=== PATIENT | female | born 1990 ===

== ENCOUNTER 2017-02-07 10:03 | Inpatient (IN) | payer SELFPAY ==
[~2017-02-07] VITALS: Ht 154.9 cm; Wt 61.7 kg
[2017-02-07 10:09] VITALS: BP 118/69
[2017-02-07 10:38] VITALS: BP 115/69
[2017-02-07 10:38] LABS: BASO % 0.7 % (0.0-1.0); EOS % 0.4 % (1.0-4.0); HEMOGLOBIN 13.4 g/dl (12.0-16.0); LYMPH # 1.8 10*3/uL (1.3-4.4); LYMPH % 40.1 % (27.0-41.0); MEAN CORPUSCULAR HGB 30.4 pg (27.0-31.0); MEAN CORPUSCULAR HGB CONC 32.7 g/dl (33.0-37.0); MONO # 0.4 10*3/uL (0.1-1.0); MONO % 9.3 % (3.0-9.0); NEUT # 2.2 10*3/uL (2.3-7.9); NEUT % 49.3 % (47.0-73.0); PLATELET COUNT AUTOMATED 139 10*3/uL (130-400); RED BLOOD COUNT 4.41 10*6/uL (4.10-5.10); RED CELL DISTRI WIDTH 12.3 % (0-14.5); WHITE BLOOD COUNT 4.5 10*3/uL (4.8-10.8)
[2017-02-07 10:55] LABS: ALBUMIN 3.9 gm/dl (3.1-4.5); ALKALINE PHOSPHATASE 63 U/L (45-117); BILIRUBIN, TOTAL 0.4 mg/dl (0.2-1.0); BUN 10 mg/dl (7-24); CARBON DIOXIDE 27 mmol/L (21-32); CHLORIDE 106 mmol/L (98-107); EST GLOM FILT AFRICAN AMERICAN > 60 ml/min; GLUCOSE 78 mg/dL (65-99); POTASSIUM 3.6 mmol/L (3.5-5.1); SGOT/AST 23 IU/L (3-35); SGPT/ALT 24 U/L (12-78); SODIUM 140 mmol/L (136-145); TOTAL PROTEIN 7.9 gm/dL (6.4-8.2); TROPONIN I < 0.015 ng/ml (<0.045)
[2017-02-07 12:23] LABS: BILIRUBIN NEGATIVE (NEGATIVE); BLOOD TRACE-INTACT (NEGATIVE); CLARITY SL CLOUDY (CLEAR); COLOR YELLOW (YELLOW); GLUCOSE NEGATIVE (NEGATIVE); KETONE NEGATIVE (NEGATIVE); LEUKO ESTERASE 2+ (NEGATIVE); NITRITE NEGATIVE (NEGATIVE); PROTEIN NEGATIVE (NEGATIVE); SPECIFIC GRAVITY <= 1.005 (1.005-1.030); UROBILINOGEN 0.2 E.U./dl (0.2-1.0)
[2017-02-07 12:38] LABS: BACTERIA 3+; EPITHELIAL CELLS 20-30; URINE REFLEX COMMENT YES (NO); WBC 21-30 wbc/hpf (0-5)
[2017-02-07 13:38] VITALS: BP 101/64
[2017-02-07 16:00] VITALS: BP 90/50
[2017-02-07 20:00] VITALS: BP 89/52; BP 90/50
[2017-02-08] VITALS: BP 92/48
[2017-02-08 06:56] LABS: BASO % 0.2 % (0.0-1.0); EOS % 0.7 % (1.0-4.0); HEMATOCRIT 36.9 % (37.0-47.0); LYMPH # 1.5 10*3/uL (1.3-4.4); LYMPH % 35.7 % (27.0-41.0); MEAN CELL VOLUME 94.6 fl (81.0-99.0); MEAN CORPUSCULAR HGB 30.8 pg (27.0-31.0); MEAN CORPUSCULAR HGB CONC 32.5 g/dl (33.0-37.0); MONO # 0.4 10*3/uL (0.1-1.0); MONO % 9.2 % (3.0-9.0); NEUT # 2.2 10*3/uL (2.3-7.9); PLATELET COUNT AUTOMATED 124 10*3/uL (130-400); RED CELL DISTRI WIDTH 12.4 % (0-14.5); WHITE BLOOD COUNT 4.2 10*3/uL (4.8-10.8)
[2017-02-08 07:28] LABS: BUN 8 mg/dl (7-24); CARBON DIOXIDE 25 mmol/L (21-32); CHLORIDE 109 mmol/L (98-107); EST GLOM FILT AFRICAN AMERICAN > 60 ml/min; FREE T4 0.96 ng/dl (0.76-1.46); GLUCOSE 89 mg/dL (65-99); INTERNATIONAL NORM RATIO 1.1 (2.0-3.5); MAGNESIUM 1.8 mg/dL (1.5-2.1); PHOSPHOROUS 3.2 mg/dL (2.5-4.9); POTASSIUM 4.1 mmol/L (3.5-5.1); PROTHROMBIN TIME 11.9 SECONDS (9.0-12.4); SODIUM 142 mmol/L (136-145)
[2017-02-08 07:47] LABS: VITAMIN D, 25-HYDROXY 24.9 ng/mL (30-100)
[2017-02-08 07:48] LABS: FOLIC ACID 12.25 ng/mL (>5.38)
[2017-02-08 08:00] VITALS: BP 82/48
[2017-02-08] MEDS ORDERED: VITAMIN D1000 IU PO (11:39)
[2017-02-08 12:00] VITALS: BP 84/50
== END 2017-02-08 13:36 | disposition home or self-care (01) | DRG 690 ==
LOC: ED 10:03 → 4E 12:50 → EDHOLD 12:50 → 4E 13:16
PROVIDERS: Internal Medicine; Student in an Organized Health Care Education/Training Program
DX: N39.0 Urinary tract infection, site not specified (principal); E83.51 Hypocalcemia; R55 Syncope and collapse; D72.819 Decreased white blood cell count, unspecified; Z72.89 Other problems related to lifestyle; Z88.1 Allergy status to other antibiotic agents